=== PATIENT | female | born 1995 | race Caucasian/White ===

== ENCOUNTER 2017-10-29 17:46 | Emergency (ER) | END 2017-10-29 18:41 | disposition home or self-care (01) ==

== ENCOUNTER 2018-05-13 18:27 | Emergency (ER) | payer OTHER ==
[~2018-05-13] VITALS: Ht 160 cm; Wt 61.4 kg
[~2018-05-13 18:27] MED LIST: ACET500C5 PO; BENZ-6 PO; CALC600T5 PO; CETI1TAB6 PO; FERR240T9 PO; IBUP-1542 PO; PRENAT PO
[2018-05-13 18:46] VITALS: BP 108/59; PULSE 69; RESP 18; Ht 160 cm; Wt 61.4 kg
[2018-05-13] MEDS ORDERED: ONDA4TAB14 PO (20:52)
[2018-05-13] MEDS ORDERED: RANI150T35 PO (20:52)
--- NOTE | 2018-05-14 00:33 | ERD ---
ER Documentation Chief Complaint Chief Complaint vomiting x 1 day. also c/o abd pain HPI This patient is a 23-year-old female with no significant past medical history presenting to the emergency department complaining of intermittent nausea, vomiting, and diarrhea after drinking red wine yesterday evening. Symptoms are intermittent. Symptoms moderate in severity and overall improving. She tried no medication for relief of symptoms. She has had sick contacts. No other symptoms reported at this time. ROS All systems reviewed and are negative except as per history of present illness. Medications Home Meds Active Scripts Ranitidine Hcl* (Zantac*) 150 Mg Tablet, 150 MG PO BID PRN for EPIGASTRIC PAIN, #30 TAB Prov:BRADY BATEMAN PA-C 05/13/18 Ondansetron (Ondansetron Odt) 4 Mg Tab.rapdis, 4 MG PO Q6H PRN for NAUSEA AND/OR VOMITING, #10 TAB Prov:BRADY BATEMAN PA-C 05/13/18 Benzonatate* (Tessalon Perle*) 100 Mg Capsule, 100 MG PO Q8H PRN for COUGH, #30 CAP Prov:KATRIN ALICIA PA-C 10/29/17 Acetaminophen* (Tylophen*) 500 Mg Capsule, 1 CAP PO Q4 PRN for PAIN AND OR ELEVATED TEMP, #30 CAP Prov:KATRIN ALICIA PA-C 10/29/17 Cetirizine/Pseudoephedrine (Zyrtec-D) 5-120 Mg Tab.er.12h, 1 TAB PO Q12, #20 TAB Prov:KATRIN ALICIA PA-C 10/29/17 Ibuprofen* (Ibuprofen*) 600 Mg Tab, 600 MG PO Q6, #20 TAB 0 Refills Prov:AKHIL VU MD 08/30/15 Reported Medications Calcium Carbonate (CALCIUM) 600 Mg Tablet, 600 MG PO, TAB 08/01/15 Ferrous Gluconate (Iron) 1 Tab Tablet, 1 TAB PO, TAB 08/01/15 Multivit/Min/Fol Ac/Iron/Pren* ( S*) Unknown Strength Tab, PO DAILY, TAB 04/03/15 Allergies Allergies: Coded Allergies: No Known Allergy (Unverified , 05/13/18) PMhx/Soc History of Surgery: Yes (appendectomy) Anesthesia Reaction: No Hx Neurological Disorder: No Hx Respiratory Disorders: No Hx Cardiac Disorders: No Hx Psychiatric Problems: No Hx Miscellaneous Medical Probl: No Hx Alcohol Use: No Hx Substance Use: No Hx Tobacco Use: No Smoking Status: Never smoker FmHx Family History: No diabetes Physical Exam Vitals Vital Signs Date Temp Pulse Resp B/P (MAP) Pulse Ox O2 O2 Flow FiO2 Time Delivery Rate 05/13/18 98.4 69 18 108/59 97 18:46 (75) Physical Exam Const: No acute distress Head: Atraumatic Eyes: Normal Conjunctiva ENT: Normal External Ears, Nose and Mouth. Neck: Full range of motion. No meningismus. Resp: Clear to auscultation bilaterally Cardio: Regular rate and rhythm, no murmurs Abd: Soft, non tender, non distended. Normal bowel sounds. No rebound tenderness or guarding. No McBurney's point tenderness. Skin: No petechiae or rashes Ext: No cyanosis, or edema Neur: Awake and alert Psych: Normal Mood and Affect Procedures/MDM Patient is a 23-year-old female presenting to the emergency department complaining of intermittent nausea, vomiting, and diarrhea after drinking al cohol yesterday evening. The patient also had sick contacts. I suspect sickness secondary to alcohol or gastroenteritis, likely viral etiology. The patient has stable vital signs and her abdominal examination was not concerning for acute surgical abdomen in the department. Patient was not actively vomiting. She was nontoxic and well-appearing. She will be discharged home with prescriptions to treat her symptoms at home. She was advised to follow-up with her primary care physician and return immediately for any new or worsening or concerning symptoms. The patient agreed with the diagnosis, plan, need for follow-up, return precautions. No evidence of acute surgical abdomen, sepsis, or other emergencies. Departure Diagnosis: Primary Impression: Nausea and vomiting Vomiting type: unspecified Vomiting Intractability: non-intractable Qualified Codes: R11.2 - Nausea with vomiting, unspecified Condition: Fair Patient Instructions: Nausea and Vomiting-Adult Additional Instructions: Call your primary care doctor TOMORROW for an appointment during the next 1-2 days.See the doctor sooner or return here if your condition worsens before your appointment time. BRADY BATEMAN PA-C May 14, 2018 00:33
== END 2018-05-13 20:59 | disposition home or self-care (01) ==
LOC: FTE 18:27
DX: R11.2 Nausea with vomiting, unspecified (principal)
CPT/HCPCS: 99283